=== PATIENT | male | born 1985 | race Caucasian/White ===

== ENCOUNTER → 2022-03-28 | Outpatient (CLI) | payer OTHER ==
--- NOTE | 2022-03-28 16:59 | CA ---
Exercise Stress Test Report Name: Parish Roman Exam Date: 03/28/2022 11:32 Exam Location: [facility] Ht (in): 69 Wt (lb): 230 BSA: 2.19 Ordering Phys: Lalito Palmer MD Referring Phys: TIGIST, Technologist: Rene Geiger Age: 36 Gender: M : 1985 Procedure CPT: Indications: R07.89 Atypical CP ICD-10 Codes: Patient History: Chest pain, shortness of breath and some palpitations. Medications: Meds past 24 hrs: Pretest Chest Pain: STRESS TEST Prateek Protocol Exercise Duration (min:sec): 10:[address] Depressions (mm): Angina Score: Parekh Score: Resting HR (bpm): 69 Peak HR (bpm): 173 Resting BP (mmHg): 131 / 84 Peak BP (mmHg): 199 / 94 MPHR: 183 Target HR: 156 % MPHR: 95 METS: 12.1 Total Dose: Peak Dose: Atropine: Double Product: 45185 BP Response: Stress Termination: Reached target heart rate Stress Symptoms: No chest pain or symptoms Stress Summary: ECG ANALYSIS Resting ECG: Stress ECG: CONCLUSIONS Patient underwent exercise stress EKG with a Prateek protocol treadmill stress test. Patient exercised into Stage 3 for a total of 10 minutes and 5 seconds reaching a total of 12.1 METS. Patient's maximum heart rate was 173 which represented 94% age- predicted maximum heart rate. Stress EKG findings: At baseline patient's EKG showed normal sinus rhythm, normal axis, no significant ST or T wave abnormalities. At peak exercise, EKG showed normal. Conclusions: 1. Normal EKG response to exercise without evidence of inducible ischemia. 2. Good exercise capacity. Dr. Naeem Conde DO (Electronically Signed) Final Date: 28 March 2022 16:58
== END | disposition home or self-care (01) ==
LOC: RADNMMAIN 10:42
PROVIDERS: ATTEND Family Medicine
DX: R07.89 Other chest pain (principal)
CPT/HCPCS: 93017

== ENCOUNTER → 2024-07-26 | Outpatient (CLI) | payer OTHER ==
--- NOTE | 2024-07-26 09:05 | US ---
EXAMINATION TYPE: US abdomen limited DATE OF EXAM: 07/26/2024 COMPARISON: NONE CLINICAL INDICATION: Male, 39 years old with history of R10.32 LEFT LOWER QUADRANT PAIN; Pt states LL Q pain for a month that has subsided. 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 FINDINGS/IMPRESSION: No obvious abnormality found on today's study. No evidence for hernia, fluid co llection or mass. [facility], , 07/26/2024 9:02 AM
== END | disposition home or self-care (01) ==
LOC: RADUSWWP 08:23
PROVIDERS: ATTEND Family Medicine
DX: R10.32 Left lower quadrant pain (principal)
CPT/HCPCS: 76705